=== PATIENT | male | born 1955 | race Caucasian/White ===

== ENCOUNTER → 2024-04-30 13:54 | Outpatient (REF) | payer MEDICARE, SELFPAY | LOC: RCS 13:54 | PROVIDERS: ATTENDING PHYSICIAN Nurse Practitioner Family; FAMILY PHYSICIAN Internal Medicine Geriatric Medicine | DX: H53.9 Unspecified visual disturbance (principal); I10 Essential (primary) hypertension; E78.2 Mixed hyperlipidemia | CPT/HCPCS: 93005 ==

== ENCOUNTER → 2024-05-03 08:56 | Outpatient (REF) | payer MEDICARE, SELFPAY | LOC: RAD 08:56 | PROVIDERS: ATTENDING PHYSICIAN Internal Medicine Geriatric Medicine | DX: H53.9 Unspecified visual disturbance (principal) | CPT/HCPCS: 93880 ==

== ENCOUNTER → 2024-05-07 09:24 | Outpatient (REF) | payer MEDICARE, SELFPAY | LOC: RCS 09:24 | PROVIDERS: ATTENDING PHYSICIAN Nurse Practitioner Family; FAMILY PHYSICIAN Internal Medicine Geriatric Medicine | DX: H53.9 Unspecified visual disturbance (principal) | CPT/HCPCS: 93225; 93226 ==

== ENCOUNTER → 2024-05-10 11:00 | Outpatient (REF) | payer MEDICARE, SELFPAY | LOC: HWRCS 11:00 | PROVIDERS: ATTENDING PHYSICIAN Nurse Practitioner Family; FAMILY PHYSICIAN Internal Medicine Geriatric Medicine | DX: H53.9 Unspecified visual disturbance (principal) | CPT/HCPCS: 93306 ==

== ENCOUNTER → 2024-10-16 10:07 | Outpatient (REF) | payer MEDICARE, SELFPAY ==
[2024-10-16 10:20] VITALS: BP 127/84; BP_SYST 80
== END ==
LOC: RADI 10:07
PROVIDERS: ATTENDING PHYSICIAN Internal Medicine Geriatric Medicine
DX: E04.1 Nontoxic single thyroid nodule (principal)
CPT/HCPCS: 88173; 10005

== ENCOUNTER → 2025-01-28 10:36 | Outpatient (REF) | payer MEDICARE, SELFPAY ==
[2025-01-28 11:17] LABS: Hematocrit 46.0 % (39.0-52.0); Hemoglobin 15.9 g/dL (13.0-18.0); Mean Corp Hgb Conc. 34.6 g/dL (33.0-37.0); Mean Corpuscular Volume 101.3 fL (80.0-94.0); Nucleated Red Blood Cells % 0 % (-); Platelet Count 200 10^3/uL (130-400); Red Cell Dist. Width 12.0 % (11.5-14.5)
[2025-01-28 11:58] LABS: Blood Urea Nitrogen 36 mg/dl (9-20); Calcium 9.8 mg/dl (8.4-10.2); Carbon Dioxide 28 mmol/L (22-30); Chloride 103 mmol/L (98-107); Glucose 93 mg/dl (70-99); Potassium 5.7 mmol/L (3.5-5.1); Sodium 135 mmol/L (135-145); eGFR 54.41
== END ==
LOC: RCS 10:36
PROVIDERS: ATTENDING PHYSICIAN Nurse Practitioner Family; FAMILY PHYSICIAN Internal Medicine Geriatric Medicine
DX: Z01.818 Encounter for other preprocedural examination (principal)
CPT/HCPCS: 36415; 80048; 85025; 93005